=== PATIENT | male | born 1955 | race Caucasian/White ===

== ENCOUNTER 2022-07-08 07:37 | Inpatient (IN) | payer OTHER ==
[2022-07-08] MEDS ORDERED: LACTATED RINGERS SOLUTION 1000 ML INFUS.BAG IV ONE (07:47)
[2022-07-08] MEDS ORDERED: RAPID SEQUENCE INTUBATION KIT NR ONE (08:01)
[2022-07-08] MEDS ORDERED: KETAMINE HCL 500 MG/10 ML VIAL ONE (08:10)
[2022-07-08] MEDS ORDERED: KETAMINE HCL 200 MG/20 ML VIAL ONE (08:10)
[2022-07-08 08:17] LABS: HEMATOCRIT 44.7 % (35.4-49); HEMOGLOBIN 13.7 GM/dL (11.7-16.9); MCH 27.3 pg (25.7-33.7); MCHC 30.7 g/dl (32.0-35.9); MEAN PLT VOLUME 7.6 fl (7.5-11.1); PLATELET COUNT 562 10^3/uL (134-434); RBC 5.02 M/mm3 (4.00-5.60); RDW 16.2 % (11.9-15.9); WHITE BLOOD COUNT 23.4 K/mm3 (4.0-10.0)
[2022-07-08 08:18] LABS: VENOUS BASE EXCESS 0.3 mmol/L (-2-2); VENOUS O2 SATURATION 22.4 % (70-80)
[2022-07-08 08:23] LABS: INR 1.15 (0.83-1.09); PROTHROMBIN TIME (PATIENT) 13.3 SEC (9.7-13.0)
[2022-07-08 08:29] LABS: VENOUS PH 7.034 (7.310-7.410)
[2022-07-08 08:30] LABS: VENOUS PCO2 136.3 mmHg (38-52)
[2022-07-08] MEDS ORDERED: NOREPINEPHRINE BITARTRATE/D5W 8 MG/250 ML BAG IVPB ONE (08:35)
[2022-07-08] MEDS ORDERED: KETAMINE HCL 200 MG/20 ML VIAL IVPUSH ONE (08:38)
[2022-07-08 08:39] LABS: BLOOD UREA NITROGEN 20.5 mg/dL (7-18); CALCIUM 9.7 mg/dL (8.5-10.1)
[2022-07-08 08:40] LABS: ALBUMIN 2.6 g/dl (3.4-5.0)
[2022-07-08 08:43] LABS: CREATININE 1.1 mg/dL (0.55-1.3)
[2022-07-08 08:44] LABS: BILIRUBIN,TOTAL 0.3 mg/dL (0.2-1); TOT PROT 8.7 g/dl (6.4-8.2)
[2022-07-08] MEDS ORDERED: PIPERACILLIN/TAZOB 3.375 GM 3.375 GM in DEXTROSE 5%-WATER - 50 ML IVPB ONE (08:48)
[2022-07-08] MEDS ORDERED: VANCOMYCIN 1 GM in D5W (PRE-DOCKED) 1,000 MG/250 ML IVPB ONE (08:48)
[2022-07-08 08:49] LABS: LACTIC ACID 4.2 mmol/L (0.4-2.0)
[2022-07-08] MEDS ORDERED: VANCOMYCIN/WATER FOR INJ (PEG) 1,000 MG/200 ML BAG IVPB ONE (09:28)
[2022-07-08] MEDS ORDERED: ROCURONIUM BROMIDE 50 MG/5 ML VIAL IVPUSH ONE (09:29)
[2022-07-08] MEDS ORDERED: PIPERACILLIN/TAZOB 3.375 GM 3.375 GM/50 ML BAG IVPB ONE (09:29)
[2022-07-08] MEDS ORDERED: NOREPINEPHRINE BITARTRATE/D5W 8 MG/250 ML BAG IVPB SCH (09:30)
[2022-07-08] MEDS ORDERED: PHENYLEPHRINE HCL 10 MG/1 ML SINGLE DOSE VIAL IVPB ONE (09:32)
[2022-07-08 09:39] LABS: EPI CELLS >36 /uL (0-25.1); HYALINE CASTS 18 /uL (0-3.1); URINE APPEARANCE CLOUDY; URINE BACTERIA 32 /uL (0-1359); URINE BILIRUBIN NEGATIVE (NEGATIVE); URINE COLOR YELLOW; URINE GLUCOSE (UA) NEGATIVE (NEGATIVE); URINE KETONE NEGATIVE (NEGATIVE); URINE LEUK ESTERASE NEGATIVE (NEGATIVE); URINE NITRITE NEGATIVE (NEGATIVE); URINE PROTEIN 3+ (NEGATIVE)
[2022-07-08 09:52] LABS: ANISOCYTOSIS 2+; MACROCYTOSIS 0; OVALOCYTE 1+
[2022-07-08 09:57] LABS: URINE RBC 22.8 /uL (0-23.9); URINE WBC 139.9 /uL (0-25.8)
[2022-07-08] MEDS ORDERED: MIDAZOLAM IN 0.9 % SOD.CHLORID 1 MG/1 ML PLAST..BAG ONE (10:19)
[2022-07-08 10:24] LABS: ARTERIAL BLOOD GAS BASE EXCESS -1.8 mmol/L (-2-2); ARTERIAL BLOOD GAS PO2 66.7 mmHg (80-100); ARTERIAL BLOOD GAS pH 7.261 (7.350-7.450)
[2022-07-08] MEDS ORDERED: FENTANYL CITRATE/PF 50 MCG/ML VIAL ONE (10:24)
[2022-07-08 10:28] LABS: ALLENS TEST POSITIVE; VENT MODE V-AC; VENT RATE 20
[2022-07-08] MEDS ORDERED: MIDAZOLAM IN 0.9 % SOD.CHLORID 100 MG/100 ML PLAST..BAG IVPB SCH (10:30)
[2022-07-08 12:55] VITALS: RESP 24
[2022-07-08] MEDS ORDERED: FENTANYL IVPB 500 MCG/100 ML BAG IVPB SCH (15:45)
[2022-07-08] MEDS ORDERED: FENTANYL NS IVPB 500 MCG/100 ML BAG IVPB SCH (15:45)
[2022-07-08 17:53] LABS: MAGNESIUM 2.1 mg/dL (1.8-2.4)
[2022-07-08 17:56] LABS: PHOSPHOROUS 4.4 mg/dL (2.5-4.9)
[2022-07-08] MEDS ORDERED: PIPERACILLIN/TAZOB 3.375 GM 3.375 GM in DEXTROSE 5%-WATER - 50 ML IVPB SCH (18:00)
[2022-07-08] MEDS ORDERED: VANCOMYCIN 1 GM/200 ML PREMIX BAG (RESTRICTED TO ID ONLY) IVPB ONE (18:00)
[2022-07-08 18:10] LABS: LACTIC ACID 5.5 mmol/L (0.4-2.0)
[2022-07-08] MEDS ORDERED: SODIUM CHLORIDE 1,000 ML IV STA (18:13)
[2022-07-08 20:32] VITALS: PULSE 52
[2022-07-08] MEDS ORDERED: HEPARIN NA (PORCINE) 5,000 UNITS/ML 1ML VIAL SQ SCH (22:00)
[2022-07-08] MEDS ORDERED: levETIRAcetam 500 MG/5 ML INJECTION VIAL IVPB SCH (22:00)
[2022-07-08] MEDS ORDERED: CHLORHEXIDINE GLUCONATE 4% CLEANSER FOR DECOLONIZATION TP SCH (22:00)
[2022-07-08] MEDS ORDERED: MUPIROCIN 2% TOPICAL OINTMENT FOR DECOLONIZATION NS SCH (22:00)
[2022-07-08 22:06] VITALS: BP 99/72; TEMP 97
[2022-07-08 22:51] LABS: LACTIC ACID 2.7 mmol/L (0.4-2.0)
[2022-07-09] MEDS ORDERED: PANTOPRAZOLE SODIUM 40 MG VIAL IVPUSH SCH (10:00)
== END 2022-07-09 01:15 | disposition short-term general hospital (02) | DRG 208 ==
LOC: JER 07:37 → JERBED 08:45 → JICU 13:47
PROVIDERS: ADMIT Internal Medicine Pulmonary Disease; ATTEND Internal Medicine Pulmonary Disease
PROC: 5A1945Z Respiratory Ventilation, 24-96 Consecutive Hours (ICD-10-PCS; principal; 2022-07-08)
PROC: 05HN33Z Insertion of Infusion Device into Left Internal Jugular Vein, Percutaneous Approach (ICD-10-PCS; 2022-07-08)
DX: J95.09 Other tracheostomy complication (principal); J96.01 Acute respiratory failure with hypoxia; J18.9 Pneumonia, unspecified organism; E87.29 Other acidosis; Z99.11 Dependence on respirator [ventilator] status; I10 Essential (primary) hypertension; J44.9 Chronic obstructive pulmonary disease, unspecified; F20.9 Schizophrenia, unspecified; E78.5 Hyperlipidemia, unspecified; I25.10 Atherosclerotic heart disease of native coronary artery without angina pectoris
CPT/HCPCS: 0241U-QW; 36415; 36600; 70450-TC; 70490-TC; 71045-TC-FY; 80053; 81003; 82550; 82553; 82803; 82962; 83605; 83735; 84100; 84484; 85025; 85610; 85730; 86850; 86900; 86901; 87040; 87086; 87186; 93005; 93010; 99291; J1644